=== PATIENT | male | born 2000 | race Caucasian/White ===

== ENCOUNTER 2020-05-12 18:11 | Emergency (ER) | payer SELFPAY ==
[2020-05-12 18:17] VITALS: BP 143/65; PULSE 94; RESP 16; TEMP 36.8; O2SAT 100
--- NOTE | 2020-05-12 20:12 | ED.GENADULT ---
HPI - General Adult General Chief complaint: Eye Problems Stated complaint: eye injury Time Seen by Provider: 05/12/20 19:01 Source: patient Mode of arrival: ambulatory Limitations: no limitations History of Present Illness HPI narrative: Patient presents with chief complaint of pain to the inner upper aspect of his right after cutting fiberglass earlier today and feeling some into his eye. Patient states that he irrigated his extensively with still feels discomfort and has some tearing. He denies changes in vision or bleeding from the eye. He denies any other symptoms or concerns. Related Data Allergies Allergy/AdvReac Type Severity Reaction Status Date / Time No Known Allergies Allergy Mild Verified 06/04/10 20:18 Review of Systems Review of Systems: Narrative: CONSTITUTIONAL: Denies fever, chills, or sweats. EYES: Reports right eye pain and redness and tearing denies visual changes or discharge. ENT: Denies rhinorrhea, congestion, sore throat, or otalgia. CARDIOVASCULAR: Denies chest pain, palpitations, or edema. RESPIRATORY: Denies cough or dyspnea. GASTROINTESTINAL: Denies abdominal pain, nausea, vomiting, or diarrhea. GENITOURINARY: Denies dysuria or hematuria. SKIN: Denies rash or itching. MUSCULOSKELETAL: Denies back pain, joint pain, or myalgia. NEUROLOGIC: Denies headache, numbness, dizziness, or weakness. PSYCHIATRIC: Denies anxiety or depression. Exam Narrative: Exam Narrative: GENERAL: Well-appearing, well-nourished, and in no acute distress. HEAD: Normocephalic, atraumatic. EYES: PERRLA and EOMI. erythema noted to the medial aspect of the right eye. Patient rubbing vigorously upon entering the room. Fluorescein staining shows corneal abrasion at 2 o'clock position. No foreign bodies seen in the eye. Patient is not the most compliant with evaluation of eyelids for foreign bodies. Qtip also used to sweep eyelids. ENT: Nares clear, no rhinorrhea or epistaxis. Mucous membranes moist. Oropharynx without tonsillar hypertrophy exudate or other lesions. Bilateral TMs pearly lyons nonbulging NECK: Supple. No adenopathy or masses. CHEST: Clear to auscultation. No respiratory distress. No wheezes rales or rhonchi HEART: Regular rate and rhythm. No murmur heard. Normal peripheral pulses. EXTREMITIES: Normal range of motion. No edema. SKIN: Warm, dry, no rash. NEURO: No focal deficits. Alert and oriented x3. PSYCH: Normal mood and affect. Course Vital Signs Vital signs: Vital Signs Temperature 98.2 F 05/12/20 18:17 Pulse Rate 94 05/12/20 18:17 Respiratory Rate 16 05/12/20 18:17 Blood Pressure 143/65 H 05/12/20 18:17 Pulse Oximetry 100 05/12/20 18:17 Temperature 98.2 F 05/12/20 18:17 Pulse Rate 94 05/12/20 18:17 Respiratory Rate 16 05/12/20 18:17 Blood Pressure 143/65 H 05/12/20 18:17 Pulse Oximetry 100 05/12/20 18:17 Medical Decision Making MDM Narrative Medical decision making narrative: Patient instructed of the plan for corneal abrasion. Patient given the option of antibiotic ointment or drop. Patient wants antibiotic drops. Differential Diagnosis Differential Diagnosis: Corneal abrasion, foreign body, corneal ulcer Vital Signs Vital Signs: Vital Signs Temperature 98.2 F 05/12/20 18:17 Pulse Rate 94 05/12/20 18:17 Respiratory Rate 16 05/12/20 18:17 Blood Pressure 143/65 H 05/12/20 18:17 Pulse Oximetry 100 05/12/20 18:17 Temperature 98.2 F 05/12/20 18:17 Pulse Rate 94 05/12/20 18:17 Respiratory Rate 16 05/12/20 18:17 Blood Pressure 143/65 H 05/12/20 18:17 Pulse Oximetry 100 05/12/20 18:17 Discharge Plan Discharge Clinical Impression: Corneal abrasion Qualifiers: Encounter type: initial encounter Laterality: right Qualified Code(s): S05.01XA - Injury of conjunctiva and corneal abrasion without foreign body, right eye, initial encounter Patient Disposition: Home, Self-Care Condition: Stable Instructions: Antibiotic F
== END 2020-05-12 20:46 | disposition home or self-care (01) ==
PROVIDERS: Emergency Provider Emergency Medicine; PCP Internal Medicine Gastroenterology
DX: S05.01XA Injury of conjunctiva and corneal abrasion without foreign body, right eye, initial encounter (principal); W22.8XXA Striking against or struck by other objects, initial encounter
CPT/HCPCS: 99283

== ENCOUNTER 2021-03-12 21:34 | Emergency (ER) | payer SELFPAY ==
--- NOTE | ~2021-03-12 | XR_ITS ---
EXAMINATION: XR chest 2V EXAM DATE: 03/12/2021 22:35 INDICATION: Fever up to 103 this weekend. Cough, congestion, sore throat. TECHNIQUE: Frontal and lateral projections of the chest obtained and reviewed. There is no prior [place] dy for comparison. FINDINGS: There is left lower lobe segmental consolidation, focal discrete involvement suggests bact erial pneumonia. Right lung is clear. No pneumothorax or pleural effusion. Cardiomediastinal silhouet te is normal. IMPRESSION: Left lower lobe segmental pneumonia. Reviewed, dictated and finalized at location A. [facility]
[2021-03-12 21:49] VITALS: BP 118/58; PULSE 93; RESP 18; TEMP 37.3; O2SAT 100
--- NOTE | 2021-03-12 23:00 | ED.FEVER ---
HPI - Fever General Chief Complaint: Fever Stated Complaint: Fever Time Seen by Provider: 03/12/21 21:53 Source: patient and family Mode of arrival: ambulatory Limitations: no limitations History of Present Illness HPI Narrative: 20-year-old with no major medical problems here with complaints of cough and fever past 4 days. Patient states that her son and are diagnosed with RSV. He states that he coughed up bloody blood earlier. He denies any shortness of breath no history of nausea or vomiting. MD elicited complaint: fever Onset (ago): day(s) (4) Exacerbating factors: nothing Relieving factors: nothing Associated symptoms: denies other symptoms Treatments prior to arrival fever: acetaminophen Related Data Allergies Allergy/AdvReac Type Severity Reaction Status Date / Time No Known Allergies Allergy Mild Verified 06/04/10 20:18 Review of Systems Review of Systems: All systems reviewed & are unremarkable except as noted in HPI and below Constitutional: Constitutional: Reports no additional constitutional complaints Eyes: Eyes: Reports no additional eye complaints ENT: Reports system reviewed and no additional complaints, except as documented Cardiovascular: Cardiovascular: Reports no additional cardiovascular complaints Respiratory: Respiratory: Reports as per HPI Gastrointestinal: Gastrointestinal: Reports no additional gastrointestinal complaints Musculoskeletal: Musculoskeletal: Reports no additional musculoskeletal complaints Integumentary/Breasts: Skin/Breast: Reports system reviewed and no additional complaints, except as docu Neurologic: Reports system reviewed and no additional complaints, except as documented Psychiatric: Psychiatric: Reports no additional psychiatric complaints Endocrine: Endocrine: Reports no additional endocrine complaints Exam Narrative: GENERAL: Well-appearing, well-nourished, and in no acute distress. HEAD: Normocephalic, atraumatic. EYES: PERRLA and EOMI.. NECK: Supple. CHEST: Clear to auscultation. No respiratory distress. HEART: Regular rate and rhythm. No murmur heard. Normal peripheral pulses. ABDOMEN: Soft, nontender, nondistended, normal active bowel sounds. EXTREMITIES: Normal range of motion. No edema. SKIN: Warm, dry, no rash. NEURO: No focal deficits. Alert and oriented x3. PSYCH: Normal mood and affect. Course Course Emergency Course: Inform patient about her lab work and x-ray findings. Will start on antibiotics. Vital Signs Vital signs: Vital Signs Temperature 37.3 C 03/12/21 21:49 Pulse Rate 93 03/12/21 21:49 Respiratory Rate 18 03/12/21 21:49 Blood Pressure 118/58 L 03/12/21 21:49 Pulse Oximetry 100 03/12/21 21:49 Temperature 37.3 C 03/12/21 21:49 Pulse Rate 93 03/12/21 21:49 Respiratory Rate 18 03/12/21 21:49 Blood Pressure 118/58 L 03/12/21 21:49 Pulse Oximetry 100 03/12/21 21:49 MDM - Fever Differential Diagnosis Differential diagnosis: Likely community acquired pneumonia, viral infection and influenza Lab Data Labs: Influenza A Screen Negative Reference Range: Negative Influenza B Screen Negative Reference Range: Negative RSV Negative (Reference Range: Negative) Imaging Data My impression: Pneumonia in the left lower lobe Radiologist's impression: ITS Impressions Chest X-Ray 03/12/21 22:41 IMPRESSION: Left lower lobe segmental pneumonia. Discharge Plan Discharge Clinical Impression: Pneumonia Qualifiers: Pneumonia type: due to unspecified organism Laterality: left Lung location: lower lobe of lung Qualified Code(s): J18.9 - Pneumonia, unspecified organism Patient Disposition: Home, Self-Care Condition: Stable Instructions: Antibiotic Form, Bacterial Pneumonia (ED)
[2021-03-12 23:20] VITALS: BP 122/74; PULSE 89; RESP 18; O2SAT 99
== END 2021-03-12 23:22 | disposition home or self-care (01) ==
PROVIDERS: Emergency Provider Family Medicine; PCP Internal Medicine Gastroenterology
DX: J18.9 Pneumonia, unspecified organism (principal)
CPT/HCPCS: 71046; 87420; 87804; 99283